=== PATIENT | male | born 1980 | race Caucasian/White ===

== ENCOUNTER → 2022-05-28 | Outpatient (CLI) | payer OTHER, SELFPAY | END | disposition home or self-care (01) | PROVIDERS: PCP Nurse Practitioner Primary Care; Visit Provider Nurse Practitioner | DX: E11.65 Type 2 diabetes mellitus with hyperglycemia (principal) ==

== ENCOUNTER 2022-06-11 10:00 | Outpatient (RCR) | payer OTHER, SELFPAY ==
[2022-05-14 08:40] VITALS: BP 170/96; PULSE 92; RESP 16; TEMP 36.3; BMI 48.5
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
[2022-05-21 08:13] VITALS: TEMP 36.2; BMI 48.5
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
[2022-05-28 08:11] VITALS: BP 151/94; PULSE 90; RESP 17; TEMP 36.1; BMI 48.5
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
[2022-06-04 08:16] VITALS: BP 145/85; PULSE 95; RESP 16; TEMP 35.4; BMI 48.5
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
[2022-06-11 10:04] VITALS: BP 182/100; PULSE 97; RESP 16; TEMP 35.3; BMI 48.5
== END 2022-06-13 23:59 | disposition home or self-care (01) ==
LOC: WC 10:00
PROVIDERS: PCP Nurse Practitioner Primary Care; Visit Provider Nurse Practitioner
DX: E11.621 Type 2 diabetes mellitus with foot ulcer (principal); L97.522 Non-pressure chronic ulcer of other part of left foot with fat layer exposed; Z79.84 Long term (current) use of oral hypoglycemic drugs; S91.102A Unspecified open wound of left great toe without damage to nail, initial encounter; S90.425A Blister (nonthermal), left lesser toe(s), initial encounter
CPT/HCPCS: 11042; 87070; 87075; 87077; 87186; 87205; 99203; 99214; G0463

== ENCOUNTER 2022-07-09 11:00 | Outpatient (RCR) | payer OTHER, SELFPAY ==
[2022-06-14 00:43] VITALS: BP 182/100; PULSE 97; RESP 16; TEMP 35.3; BMI 48.5
[2022-06-18 08:11] VITALS: BP 147/90; PULSE 90; RESP 16; TEMP 35.8; BMI 48.5
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
[2022-06-25 08:16] VITALS: BP 129/86; PULSE 84; RESP 16; TEMP 35.9; BMI 48.5
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
[2022-07-02 08:11] VITALS: BP 155/93; PULSE 85; RESP 16; BMI 48.5
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
[2022-07-09 11:12] VITALS: BP 133/87; PULSE 89; RESP 18; TEMP 36.1; BMI 48.5
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
== END 2022-07-09 15:11 | disposition home or self-care (01) ==
LOC: WC 11:00
PROVIDERS: PCP Nurse Practitioner Primary Care; Visit Provider Nurse Practitioner
DX: E11.621 Type 2 diabetes mellitus with foot ulcer (principal); L97.521 Non-pressure chronic ulcer of other part of left foot limited to breakdown of skin; S91.102A Unspecified open wound of left great toe without damage to nail, initial encounter; Y99.0 Civilian activity done for income or pay; S90.425A Blister (nonthermal), left lesser toe(s), initial encounter
CPT/HCPCS: 11042; 99213; G0463

== ENCOUNTER → 2022-07-28 | Outpatient (CLI) | payer OTHER, SELFPAY ==
[2022-07-28 21:59] LABS: Absolute Lymphocyte Count 3.12 X10^3/uL (0.83-4.51); Absolute Neutrophil Count 4.6 X10^3/uL (2.0-7.7); Basophil# 0.04 X10^3/uL; Basophil% 0.5 % (0-1); Eosinophil# 0.04 X10^3/uL; Eosinophils% 0.5 % (0-5); Hematocrit 48.2 % (40-54); Hemoglobin 15.9 g/dL (13.0-16.5); Lymphocyte # 3.12 X10^3/ul (0.83-4.51); Lymphocyte % 36.9 % (19-41); Mean Corpuscular Hgb 27.6 pg (27.0-32.0); Mean Corpuscular Volume 83.5 fL (80-94); Mean Platelet Vol. 11.8 fl (6.2-12.0); Monocyte# 0.68 X10^3/uL; NRBC Flagged by Analyzer 0 % (0-5); Neutrophil # 4.56 X10^3/uL (2.7-7.7); Platelet Count 225 K/mm3 (150-450); RBC Distribution Width CV 12.9 % (11.6-14.6); RBC Distribution Width SD 39.5 fl (35.1-43.9); Red Blood Count 5.77 M/mm3 (4.6-6.2); White Blood Count 8.5 K/mm3 (4.4-11.0)
[2022-07-28 22:12] LABS: ALB/GLOB Ratio 0.9 RATIO (0.9-2.4); AST(SGOT) 13 U/L (15-37); Alanine Aminotransfer ALT/SGPT 18 U/L (16-61); Albumin, Serum 3.7 g/dL (3.2-5.0); Alkaline Phosphatase 83 U/L (45-117); Anion Gap 5 (5-15); BUN 14 mg/dL (7-18); BUN/Creat Ratio 20.7 RATIO (10-20); Calcium,Total 8.9 mg/dL (8.5-10.1); Chloride 105 mmol/L (98-107); Cholesterol 186 mg/dL (200); Creatinine, Serum 0.68 mg/dL (0.70-1.30); EST Glomerular Filtration Rate 138 mL/min (>60); Est Glom Filt Rate - Afr Amer 167 mL/min (>60); Globulin 4.2 g/dL (2.2-4.2); Glucose 153 mg/dL (74-106); High Density Lipoprotein 35 mg/dL; Potassium 3.6 mmol/L (3.5-5.1); Protein, Total 7.9 g/dL (6.4-8.2); Sodium Level 140 mmol/L (136-145); Triglycerides 141 mg/dL; Very Low Density Lipoprotein 28 mg/dL (5-40)
== END | disposition home or self-care (01) ==
PROVIDERS: Visit Provider Nurse Practitioner
DX: E11.65 Type 2 diabetes mellitus with hyperglycemia (principal)
CPT/HCPCS: 80053; 80061; 85025